=== PATIENT | female | born 1955 | race Caucasian/White ===

== ENCOUNTER 2018-04-10 20:06 | Observation (INO) ==
--- NOTE | 2018-04-10 20:15 | Emergency Department Note ---
Disposition Clinical Impression: Shortness of breath, Hyponatremia Chest pain Qualifiers: Chest pain type: unspecified Qualified Code(s): R07.9 - Chest pain, unspecified Disposition: Admitted As Inpatient Condition: Fair Referrals: NONE,PCP [Primary Care Provider] - Forms: ED Satisfaction Letter Chest Pain HPI - General Chief Complaint: ED Chest Pain Stated Complaint: cp Time Seen by Provider: 04/10/18 20:12 Source: patient, EMS Mode of arrival: EMS Limitations: no limitations Vital Signs Reviewed: Yes Nursing Notes Reviewed: Yes - History of Present Illness HPI Narrative: Patient is a 62-year-old female with no past medical history, patient states she has not seen a doctor in a while, presenting with chief complaint of chest pain for 3 days. Patient complains of intermittent episodes of substernal chest pain that can occur whenever. She states it is associated with shortness of breath. Today she had 5 beers. She was sitting in front of the TV when she suddenly de veloped substernal chest pain that she describes as pressure-like and was more intense than the past couple of days. She complains of associated shortness of breath and nausea. No vomiting. Denies recent fevers. She does say she has a cold. She has never had a heart attack before. She states her father of a heart attack at age 29. - Related Data Allergies Allergy/AdvReac Type Severity Reaction Status Date / Time No Known Allergies Allergy Verified 04/10/18 20:12 All systems ED: reviewed and negative except as stated. Review of Systems: As Per HPI Constitutional: Denies: fever, chills Cardiovascular: Reports: chest pain. Denies: palpitations Respiratory: Reports: cough, dyspnea Gastrointestinal: Reports: nausea. Denies: abdominal pain, vomiting, diarrhea Genitourinary: Denies: dysuria Neurological: Denies: headache, weakness Chest Pain PMH - Past Medical History Medical history: Reports: no medical history - Social History Smoking Status: Current every day smoker Alcohol use: Reports: occasionally Drug use: Reports: none Physical Exam - General Limitations: no limitations General appearance: alert, in no apparent distress - Head Head exam: atraumatic, normocephalic, normal inspection - Eye Eye exam: Present: normal appearance, EOMI - ENT ENT exam: normal exam, normal oropharynx, mucous membranes moist - Neck Neck exam: Present: normal inspection, trachea midline - Chest Chest inspection: Present: normal inspection, symmetric chest wall rise - Respiratory Respiratory exam: Present: normal lung sounds bilaterally. Absent: respiratory distress, wheezes - Cardiovascular Cardiovascular exam: Present: regular rate, normal rhythm, normal heart sounds - Abdominal Exam Abdominal exam: Present: soft, Non-Tender. Absent: tenderness, distention, guarding, rebound, rigidity - Extremities Exam Extremities exam: Present: normal inspection, full ROM, normal capillary refill. Absent: tenderness, pedal edema - Back Exam Back exam: Present: normal inspection, full ROM. Absent: tenderness - Neurological Exam Neurological exam: Present: alert, oriented X3 - Psychiatric Psychiatric exam: Present: normal affect, normal mood - Skin Skin exam: Present: warm, dry, intact, normal color Course Vital Signs Temperature 98.5 F 04/10/18 20:12 Pulse Rate 109 04/10/18 20:12 Respiratory Rate 20 04/10/18 20:12 Blood Pressure 151/96 04/10/18 20:12 O2 Sat by Pulse Oximetry 93 04/10/18 20:12 Temperature 98.5 F 04/10/18 20:12 Pulse Rate 105 04/10/18 21:55 Respiratory Rate 22 04/10/18 21:55 Blood Pressure 97/69 04/10/18 21:55 O2 Sat by Pulse Oximetry 90 04/10/18 21:55 Oxygen Delivery Oxygen Delivery Room Air Chest Pain - [facility] Narrative Medical decision making narrative: Patient denies any past medical history, has a family history of coronary artery disease and [place] at a young age. She states she has not been to a doctor in a long time. EKG shows no acute ischemic changes. We will obtain cardiac workup and check troponin, CBC, BMP. She states she had 5 beers prior to coming in which may be causing her tachycardia. She received aspirin in route and received 1 nitroglycerin with improvement in pain. Will continue Nitro trial. 22:40 Troponin normal. Chest x-ray without acute cardiopulmonary abnormality. Patient had one more nitroglycerin which resolved her chest pain. She is still tachycardic. She will be admitted for ACS workup. Dr. Thompson, hospitalist has accepted admission. - Medical Records Medical records reviewed: Yes I reviewed the patient's medical records. - Lab Data Lab results reviewed: Yes I reviewed the patient's lab results. Result diagrams: 04/10/18 20:40 04/10/18 20:40 Lab Results 04/10/18 04/10/18 04/10/18 Range/Units 20:40 20:40 20:40 WBC 9.2 (4.3-11.1) K/mcL RBC 4.25 (3.82-4.97) M/mcL Hgb 13.3 (11.5-15.4) g/dL Hct 38.0 (35.3-44.9) % MCV 89.4 (83.0-100.0) fL MCH 31.3 (28.0-33.3) pg MCHC 35.0 (31.6-35.5) g/dL RDW 12.8 (11.5-14.5) % Plt Count 291 (140-400) K/mcL MPV 8.6 L (9.4-12.4) fL Immature Gran % 0.7 (0-4) % Seg Neutrophils % 54.9 % Lymphocytes % 35.2 % Monocytes % 7.0 % Eosinophils % 1.0 % Basophils % 1.2 % Neutrophils # 5.1 (1.6-8.9) K/mcL Lymphocytes # 3.2 (0.6-4.6) K/mcL Monocytes # 0.6 (0.0-1.3) K/mcL Eosinophils # 0.1 (0.0-0.6) K/mcL Basophils # 0.1 (0.0-0.2) K/mcL PT 12.7 H (9.4-12.1) Seconds INR 1.1 APTT 34.8 (26.0-36.0) Seconds Sodium 128 L (136-145) mEq/L Potassium 3.6 (3.5-5.1) mEq/L Chloride 96 L (98-107) mEq/L Carbon Dioxide 20 L (23-29) mEq/L BUN 6 L (8-23) mg/dL Creatinine 0.61 (0.60-1.20) mg/dL Est GFR ( Amer) > 60 (> 60) Est GFR (Non-Af Amer) > 60 (> 60) BUN/Creatinine Ratio 10 (6-26) Glucose 112 H (70-105) mg/dL Calculated Osmolality 264 L (280-300) Calcium 8.9 (8.6-10.3) mg/dL Troponin I < 0.03 (< 0.04) ng/mL - Radiology Data Radiology results reviewed: Yes I reviewed the patient's radiology results. Chest X-Ray 04/10/18 20:13 IMPRESSION: No acute abnormality detected. Rounded retrocardiac opacity, which is probably a small moderate-sized hiatal hernia. If no prior examinations are available, follow-up esophagram or chest CT is recommended to confirm that. D/ / Tristian Justice MD / Tristian Justice MD Interpreting Provider: Tristian Justice MD - EKG Data EKG attestation: Yes I reviewed and interpreted this EKG. EKG results narrative: EKG obtained today at 2013 shows sinus tachycardia with heart rate 112. QRS duration 83. QTC 452. No ST elevation or depression. Compared to old EKG on August 31 2008 which is unchanged.
--- NOTE | 2018-04-10 20:18 | Emergency Department Note ---
Disposition Clinical Impression: Chest pain, Shortness of breath, Hyponatremia Disposition: Admitted As Inpatient Condition: Fair Referrals: NONE,PCP [Primary Care Provider] - Forms: ED Satisfaction Letter General Adult HPI - General Chief complaint: ED Chest Pain Stated complaint: cp Time Seen by Provider: 04/10/18 20:12 Source: patient, EMS Mode of arrival: EMS Limitations: no limitations Nursing Notes Reviewed: Yes Vital Signs Reviewed: Yes - Related Data Allergies Allergy/AdvReac Type Severity Reaction Status Date / Time No Known Allergies Allergy Verified 04/10/18 20:12 Physical Exam - General Limitations: no limitations Course Vital Signs Temperature 98.5 F 04/10/18 20:12 Pulse Rate 109 04/10/18 20:12 Respiratory Rate 20 04/10/18 20:12 Blood Pressure 151/96 04/10/18 20:12 O2 Sat by Pulse Oximetry 93 04/10/18 20:12 Temperature 98.5 F 04/10/18 20:12 Pulse Rate 105 04/10/18 21:55 Respiratory Rate 16 04/10/18 23:30 Blood Pressure 127/87 04/10/18 23:30 O2 Sat by Pulse Oximetry 90 04/10/18 21:55 Oxygen Delivery Oxygen Delivery Room Air Medical Decision Making - MDM Narrative Medical decision making narrative: This documentation is done with the assistance of Dragon dictation. Despite efforts made to ensure accuracy, there may be inaccuracies in protective signal operator or spelling and typographical errors. I examined this patient and my medical decision-making was reviewed with the Resident Physician. I agree with the documented findings, disposition and treatment plan as described except to the extent set forth below. Patient seen and evaluated on arrival with Dr. Cerrato And EMS, I agree with her evaluation management plan, supervise care the patient's stay. Patient presents today with chest pain it has been intermittent for 2 days and also cold-like symptoms. She says she does not go the doctor very often she is a smoker she is not certain if she will high blood pressure or if she has cholesterol problems she does any heart disease in her family a young age area EKG was done by medics they gave her aspirin no nitroglycerin. We will order cardiac workup I trial and reassess. She is in agreement with plan. Chest X-Ray 04/10/18 20:13 IMPRESSION: No acute abnormality detected. Rounded retrocardiac opacity, which is probably a small moderate-sized hiatal hernia. If no prior examinations are available, follow-up esophagram or chest CT is recommended to confirm that. D/ / Tristian Justice MD / Tristian Justice MD Interpreting Provider: Tristian Justice MD 2200 hrs. after giving her nitroglycerin she does feel better. She does have a hiatal hernia on her chest x-ray which she did not know about. Her troponins negative her story sounds more cardiac workup and bring her into the hospital she is in agreement with plan impressions chest pain rule out ACS. - Lab Data Result diagrams: 04/10/18 20:40 04/10/18 20:40 Lab Results 04/10/18 04/10/18 04/10/18 Range/Units 20:40 20:40 20:40 WBC 9.2 (4.3-11.1) K/mcL RBC 4.25 (3.82-4.97) M/mcL Hgb 13.3 (11.5-15.4) g/dL Hct 38.0 (35.3-44.9) % MCV 89.4 (83.0-100.0) fL MCH 31.3 (28.0-33.3) pg MCHC 35.0 (31.6-35.5) g/dL RDW 12.8 (11.5-14.5) % Plt Count 291 (140-400) K/mcL MPV 8.6 L (9.4-12.4) fL Immature Gran % 0.7 (0-4) % Seg Neutrophils % 54.9 % Lymphocytes % 35.2 % Monocytes % 7.0 % Eosinophils % 1.0 % Basophils % 1.2 % Neutrophils # 5.1 (1.6-8.9) K/mcL Lymphocytes # 3.2 (0.6-4.6) K/mcL Monocytes # 0.6 (0.0-1.3) K/mcL Eosinophils # 0.1 (0.0-0.6) K/mcL Basophils # 0.1 (0.0-0.2) K/mcL PT 12.7 H (9.4-12.1) Seconds INR 1.1 APTT 34.8 (26.0-36.0) Seconds Sodium 128 L (136-145) mEq/L Potassium 3.6 (3.5-5.1) mEq/L Chloride 96 L (98-107) mEq/L Carbon Dioxide 20 L (23-29) mEq/L BUN 6 L (8-23) mg/dL Creatinine 0.61 (0.60-1.20) mg/dL Est GFR ( Amer) > 60 (> 60) Est GFR (Non-Af Amer) > 60 (> 60) BUN/Creatinine Ratio 10 (6-26) Glucose 112 H (70-105) mg/dL Calculated Osmolality 264 L (280-300) Calcium 8.9 (8.6-10.3) mg/dL Troponin I < 0.03 (< 0.04) ng/mL
[2018-04-10] MEDS ORDERED: Nitroglycerin 0.4 MG TAB.SUBL SL PRN (20:27)
[2018-04-10 20:53] LABS: Basophils # 0.1 K/mcL (0.0-0.2); Basophils % 1.2 %; Eosinophils # 0.1 K/mcL (0.0-0.6); Hemoglobin 13.3 g/dL (11.5-15.4); Immature Granulocytes % 0.7 % (0-4); Lymphocytes # 3.2 K/mcL (0.6-4.6); Lymphocytes % 35.2 %; Mean Corpuscular Hemoglobin 31.3 pg (28.0-33.3); Mean Corpuscular Volume 89.4 fL (83.0-100.0); Mean Platelet Volume 8.6 fL (9.4-12.4); Monocytes # 0.6 K/mcL (0.0-1.3); Neutrophils # 5.1 K/mcL (1.6-8.9); Platelet Count 291 K/mcL (140-400); Red Blood Count 4.25 M/mcL (3.82-4.97); Red Cell Distribution Width 12.8 % (11.5-14.5); Segmented Neutrophils % 54.9 %
[2018-04-10 20:59] LABS: INR 1.1; Prothrombin Time 12.7 Seconds (9.4-12.1)
[2018-04-10 21:02] LABS: Activated Partial Thrombo Time 34.8 Seconds (26.0-36.0)
[2018-04-10 21:14] LABS: BUN/Creatinine Ratio 10 (6-26); Blood Urea Nitrogen 6 mg/dL (8-23); Calcium 8.9 mg/dL (8.6-10.3); Carbon Dioxide 20 mEq/L (23-29); Chloride 96 mEq/L (98-107); Glucose 112 mg/dL (70-105); Osmolality,Calculated 264 (280-300); Potassium 3.6 mEq/L (3.5-5.1); Sodium 128 mEq/L (136-145); Troponin I < 0.03 ng/mL (< 0.04); eGFR For Non-African Americans > 60 (> 60)
[2018-04-11] MEDS ORDERED: Naloxone 0.4 MG/ML INJ IVP PRN (02:56)
[2018-04-11 04:09] LABS: Hematocrit 39.7 % (35.3-44.9); Hemoglobin 13.9 g/dL (11.5-15.4); Mean Corpuscular Hemoglobin 31.4 pg (28.0-33.3); Mean Corpuscular Volume 89.6 fL (83.0-100.0); Mean Platelet Volume 8.8 fL (9.4-12.4); Platelet Count 310 K/mcL (140-400); Red Blood Count 4.43 M/mcL (3.82-4.97); Red Cell Distribution Width 12.6 % (11.5-14.5)
[2018-04-11 04:30] LABS: BUN/Creatinine Ratio 9 (6-26); Blood Urea Nitrogen 5 mg/dL (8-23); Calcium 9.1 mg/dL (8.6-10.3); Carbon Dioxide 22 mEq/L (23-29); Chloride 102 mEq/L (98-107); Glucose 92 mg/dL (70-105); Osmolality,Calculated 275 (280-300); Potassium 3.6 mEq/L (3.5-5.1); Sodium 134 mEq/L (136-145); eGFR For Non-African Americans > 60 (> 60)
--- NOTE | 2018-04-11 08:23 | Internal Med History&Physical ---
Date of Encounter: 04/11/18 Time of Encounter: 03:45 Internal Medicine - H&P: HPI Chief complaint: Chest pain Admitted From: Emergency Dept Plans for Post Hospital Care: Home History of present illness: Ms. Desai is a 62 year old female Patient presented to the emergency room with chest pain that she has been exper iencing for 3 days. She has not followed up with doctors in a very long time, but has been having intermittent episodes of substernal chest pain. Her most recent episode occurred while she was watching TV at home. The pain did not radiate, but was associated with shortness of breath. She never had chest pain like this before. She smokes one pack of cigarettes daily and indicated to the ER that she had drank about 5 beers prior to coming in. She has a significant family history of heart disease, her father of a heart attack at the age of 29, and her sister has a cardiac murmur. Patient denies medical problems. Emergency room patient's vital signs were within normal limits, CBC was also within normal limits. Patient's initial sodium was 128, and glucose is 112. Patient's initial troponin was less than 0.03. Chest x-ray performed in the emergency room showed no acute abnormalities. EKG showed sinus tachycardia with a rate of 112, but no ST elevations or depressions. There was an old EKG from 2008 that looked similar. Patient was given nitroglycerin in the ER which resolved her pain. She was sent to the medical floor for further evaluation and workup. Upon my evaluation, patient states that her chest pain has resolved, she denies abdominal pain, nausea, diarrhea, constipation but had had vomiting prior to her arrival. She has not had vomiting since.she has not seen a doctor in quite some time, and takes no medications. Past Med Surg Social Fam HX - Past Medical History Medical history: no medical history Psychiatric history: no psych history - Social History Smoking Status: Current every day smoker Smokeless Tobacco Status: No Alcohol use: occasionally Drug use: none Internal Medicine - H&P: Meds 3 Allergy/AdvReac Type Severity Reaction Status Date / Time No Known Allergies Allergy Verified 04/10/18 20:12 All Systems PM: A 10-system review of systems was performed and is negative for pertinent findings except as documented above in the HPI. - Constitutional Vitals: Temp Pulse Resp BP Pulse Ox 99.0 F 88 18 128/85 94 04/11/18 07:21 04/11/18 07:21 04/11/18 07:21 04/11/18 07:21 04/11/18 07:21 General appearance: Present: cooperative, A&O X 3, pleasant, no acute distress, answers questions appropriately Exam: - - Head Head exam: Present: normal inspection - Eye Eye exam: Present: EOMI, normal appearance - Respiratory Respiratory exam: Present: CTAB. Absent: rales, respiratory distress, rhonchi, wheezes - Cardiovascular Cardiovascular exam: Present: RRR. Absent: diastolic murmur, systolic murmur - GI/Abdominal GI/Abdominal exam: Present: normal bowel sounds, soft. Absent: tenderness - Extremities Exam Extremities exam: Present: warm, radial pulses palpable and symmetrical. Absent: calf tenderness, pedal edema, tenderness - Neurological Exam Neurological exam: Present: no focal deficits, strengths equal and symetr throughout. Absent: motor sensory deficit, facial droop, speech deficit - Skin Skin exam: Present: dry, normal color, warm Internal Med - H&P Results - Labs CBC & Chem 7: 04/11/18 03:36 04/11/18 03:36 Labs: Short CBC 04/10/18 04/11/18 Range/Units 20:40 03:36 WBC 9.2 10.2 (4.3-11.1) K/mcL Hgb 13.3 13.9 (11.5-15.4) g/dL Hct 38.0 39.7 (35.3-44.9) % Plt Count 291 310 (140-400) K/mcL Neutrophils # 5.1 (1.6-8.9) K/mcL BMP 04/10/18 04/11/18 20:40 03:36 Sodium 128 L 134 L Potassium 3.6 3.6 Chloride 96 L 102 Carbon Dioxide 20 L 22 L BUN 6 L 5 L Creatinine 0.61 0.56 L Glucose 112 H 92 Calcium 8.9 9.1 Cardiac Enzymes 04/10/18 04/11/18 Range/Units 20:40 03:36 Troponin I < 0.03 < 0.03 (< 0.04) ng/mL - Impressions ITS Impressions Chest X-Ray 04/10/18 20:13 IMPRESSION: No acute abnormality detected. Rounded retrocardiac opacity, which is probably a small moderate-sized hiatal hernia. If no prior examinations are available, follow-up esophagram or chest CT is recommended to confirm that. D/ / Tristian Justice MD / Tristian Justice MD Interpreting Provider: Tristian Justice MD - Assessment and plan (1) Chest pain Current Visit: Yes Status: Acute Assessment and plan: Patient's chest pain is now resolved. Initial troponin and repeat troponin both undetectable. No EKG changes. Family history of cardiac disease. Continue to trend troponins monitoring and evaluation advisor Echocardiogram in the morning Qualifiers: Chest pain type: unspecified Qualified Code(s): R07.9 - Chest pain, unspecified (2) Hyponatremia Current Visit: Yes Status: Acute Assessment and plan: Patient's initial sodium was 128 in the emergency room. Upon repeat patient's sodium was 134. She does have a alcohol use history, which could explain sodium abnormalities. Continue to monitor Encourage hydration Monitor for alcohol abuse and possible withdrawal (3) Alcohol use Current Visit: Yes Status: Acute Assessment and plan: Patient informed the emergency room that she had 5 beers prior to her arrival. She did not indicate to me that she had significant alcohol use history. Monitor for signs of withdrawal Consider CIWA protocol (4) Current nicotine use Current Visit: Yes Status: Acute Assessment and plan: Nicotine patch when necessary (5) Shortness of breath Current Visit: Yes Status: Acute Assessment and plan: Resolved, patient takes pain shortness of breath when she was having chest pain. Oxygen supplementation as needed Treatment for chest pain as above (6) DVT prophylaxis Current Visit: Yes Status: Acute Assessment and plan: Subcutaneous heparin - Time Spent With Patient Total time spent is greater than 50% in coordination of care (as documented) at patient's floor/unit and/or counseling patient: Greater than 35 minutes
[2018-04-11] MEDS: Nicotine 21 MG PATCH.TD24 TD SCH (09:03)
[2018-04-11] MEDS ORDERED: Acetaminophen 325 MG TABLET PO PRN (12:17)
--- NOTE | 2018-04-11 15:15 | Event Note ---
Date of Encounter: 04/11/18 Time of Encounter: 15:11 I have seen and evaluated the patient at bedside. she denies chest pain after she received nitro. denies nausea or vomiting. physical exam: Vitals: Reviewed General: Alert and oriented x4. In no acute distress. Skin: Normal color, no rash, no lesions. HEENT: EOM, pupils equal, round and reactive. Cardiovascular: RRR, normal S1 & S2, no rubs, murmurs or gallops. Lungs: Clear to auscultation bilaterally, no wheezes or crackles. Abdomen: Soft, non-tender, no rigidity. Extremities: No deformity, no edema or tenderness, no joint swelling or clubbing. Neurological: Normal cognition and motor skills. Rest of the physical exam is non contributory Assessment and plan: 1. Atypical chest pain 2. Alcohol abuse 3. VTE prophylaxis Plan continue Nitro PRN for chest pain nuclear stress test ordered On heparin SubQ for DVT prophylaxis. Potential discharge tomorrow.
[2018-04-11] MEDS: *HR* Heparin 5,000 UNIT/ML VIAL SQ SCH (19:33)
[2018-04-12] MEDS: *HR* Heparin 5,000 UNIT/ML VIAL SQ SCH (05:11)
[2018-04-12 06:34] VITALS: BP 159/102
[2018-04-12] MEDS: Nicotine 21 MG PATCH.TD24 TD SCH (08:36)
--- NOTE | 2018-04-12 09:41 | Discharge Summary ---
- NOTES TO OUTPATIENT PROVIDER Notes to Outpatient Provider: Follow-up with your primary care physician within a week of hospital discharge. Orders not resulted at time of discharge: Pending orders 04/11/18 15:11 SP pharm nuclear stress Routine 04/12/18 09:50 NM sandro perf SPECT multi [NM] Routine Date of Encounter: 04/12/18 Time of Encounter: 09:37 - Discharge Diagnosis (1) Chest pain Priority: Primary Status: Resolved Qualifiers: Chest pain type: unspecified Qualified Code(s): R07.9 - Chest pain, unspecified (2) Alcohol use Priority: Secondary Status: Acute (3) DVT prophylaxis Priority: Secondary Status: Acute (4) Hyponatremia Priority: Secondary Status: Resolved Hospital course: Ms. Desai is a 62 year old female with past medical history of tobacco abuse, alcohol abuse. Presented to the emergency room complaining of chest pain 3 days duration. Patient admitted to the hospital for chest pain rule out ACS. As part of the workup and EKG was done in the emergency room with no acute ST segment changes, serial troponin negative. Chest pain resolved with ni troglycerin. Nuclear stress test done? Patient also found to be hyponatremic without neurological symptoms. Hyponatremia possible due to beer potomenia, resolved with fluids restrictions. Patient acute symptoms resolved. She is hemodynamically stable to be discharged home. Recommended to follow-up with her primary care physician within a week of hospital discharge. - Time Spent with Patient Total time spent providing and/or coordinating discharge services: Greater than 30 minutes (35) - Discharge Medications Prescriptions: Aspirin Enteric Coated [Aspirin EC] 81 mg PO DAILY 30 Days #30 tablet. Home Medications: Aspirin Enteric Coated [Aspirin EC] 81 mg PO DAILY 30 Days #30 tablet. 04/12 [Rx] Allergies/Adverse Reactions: Allergy/AdvReac Type Severity Reaction Status Date / Time No Known Allergies Allergy Verified 04/11/18 18:50 Date of admission: 04/10/18 23:55 Primary care physician: PCP NONE - Constitutional Vitals: Temp Pulse Resp BP Pulse Ox 97.3 F L 83 20 159/102 95 04/12/18 06:29 04/12/18 06:29 04/12/18 06:29 04/12/18 06:29 04/12/18 06:29 General appearance: Present: cooperative, A&O X 3, pleasant, no acute distress, answers questions appropriately Exam: physical exam: Vitals: Reviewed General: Alert and oriented x4. In no acute distress. Cardiovascular: RRR, normal S1 & S2, no rubs, murmurs or gallops. Lungs: Clear to auscultation bilaterally, no wheezes or crackles. Abdomen: Soft, non-tender, no rigidity. NABS in all 4 quadrants Extremities: No edema Neurological: Normal cognition. Rest of the physical exam is non contributory - Patient Status Disposition: Home, Self-Care Condition: Good Functional capacity at discharge: independent ambulation Overall status at discharge: patient is back to baseline - Discharge Instructions Follow Up With: NONE,PCP [Primary Care Provider] - - Diet and Activity Activity: resume usual activities as tolerated Diet: low salt diet
[2018-04-12] MEDS: Regadenoson 0.4 MG/5 ML SYRINGE IVP ONE ×2 (11:03→11:51)
--- NOTE | 2018-04-12 12:44 | Electrocardiograph Report ---
[place] [id number] Test Date: 2018-04-10 Pat Name: Valencia Desai Department: [id number] Room: 2A15 Gender: F Educational Manager: : 1955 Requested By: Ivonne Cerrato Order Number: [id number] Reading MD: Keri Granda Measurements Intervals [place] Rate: 112 P: 47 [place]: 148 QRS: -7 QRSD: 83 T: 62 QT: 331 QTc: 452 Interpretive Statements Sinus tachycardia Electronically Signed On 04-12-2018 12:42:52 EST by Keri Granda
== END 2018-04-12 14:04 | disposition home or self-care (01) ==
LOC: 2ANU 20:06 → EMEROOARM 20:06 → 2ANU 04-11 00:24
PROVIDERS: ADMIT Family Medicine; ATTEND Family Medicine